=== PATIENT | female | born 1965 | race Caucasian/White ===

== ENCOUNTER 2017-06-12 06:31 | Inpatient (IN) | payer OTHER ==
[2017-05-25 08:39] VITALS: Ht 170.2 cm; Wt 84.6 kg
--- NOTE | 2017-05-25 09:10 | PAT Medication Instructions ---
Service Date May 25, 2017. Current Home Medication List Ibuprofen (Advil), 800 MG PO PRN Medication Instructions For Your Scheduled Surgery - Check with surgeon for instructions: Ibuprofen (Advil), 800 MG PO PRN If you have any questions please call us at [phone] or [phone] or [phone]
[2017-06-12] VITALS (11 sets, daily range): BP systolic 83–111; BP diastolic 47–72; PULSE 51–68; TEMP 36.4–37; O2SAT 93–99
[~2017-06-12] VITALS: Ht 170.2 cm; Wt 84.6 kg
[~2017-06-12 06:31] MED LIST: CEFUROXIME IV 1,500 MG in DEXTROSE 5% 100ML IV SCH; IBUP-1050 PO
--- NOTE | 2017-06-12 07:52 | History & Physical Bridge Note ---
H&P Re-Evaluation Bridge Note: I have examined the patient, reviewed the History & Physical and in the interval since the performance of the History & Physical I have noted the following changes of clinical significance: No changes noted
[2017-06-12] MEDS ORDERED: CONRAY 60% 50 ML VIAL ONE (07:56)
[2017-06-12] MEDS ORDERED: BUPIVACAINE 0.5 % 5 MG/1 ML MPF 30ML VIAL ONE (07:56)
[2017-06-12] MEDS ORDERED: ONDANSETRON INJ 2 MG/ML 2 ML VIAL ONE (07:59)
[2017-06-12] MEDS ORDERED: GLYCOPYRROLATE INJ 0.2 MG/ML VIAL ONE (07:59)
[2017-06-12] MEDS ORDERED: LIDOCAINE HCL 2% 2 ML VIAL (20MG/ML) ONE (07:59)
[2017-06-12] MEDS ORDERED: PHENYLEPHRINE HCL INJ 10 MG/ML VIAL ONE (07:59)
[2017-06-12] MEDS ORDERED: SUCCINYLCHOLINE CHLORIDE 20 MG/ML 10 ML VIAL IV ONE (07:59)
[2017-06-12] MEDS ORDERED: PROPOFOL IV EMULSION 10 MG/ML 20 ML VIAL IV ONE (07:59)
[2017-06-12] MEDS ORDERED: FENTANYL CITRATE INJ 50 MCG/1 ML 2 ML VIAL ONE (07:59)
[2017-06-12] MEDS ORDERED: MIDAZOLAM HCL 1 MG/ML 2ML VIAL ONE (07:59)
[2017-06-12] MEDS ORDERED: DEXAMETHASONE SOD INJ 4 MG/ML VIAL ONE (07:59)
[2017-06-12] MEDS ORDERED: NEOSTIGMINE METHYLSULFATE 5 MG/5 ML SYR ONE (07:59)
[2017-06-12] MEDS ORDERED: EpHEDrine SULFATE INJ 50 MG/ML AMP ONE (07:59)
[2017-06-12] MEDS ORDERED: SCOPOLAMINE 1.5 MG TDSY TD ONE ×2 (08:02→08:15)
[2017-06-12] MEDS ORDERED: EpHEDrine SULFATE INJ 50 MG/ML AMP IV PRN (08:15)
[2017-06-12] MEDS ORDERED: ONDANSETRON INJ 2 MG/ML 2 ML VIAL IV PRN ×2 (08:15→09:30)
[2017-06-12] MEDS ORDERED: ATROPINE SULFATE 0.1 MG/ML 5ML SYR IV PRN (08:15)
[2017-06-12] MEDS ORDERED: ROCURONIUM BROMIDE 10 MG/ML 5 ML VIAL IV ONE (08:44)
[2017-06-12] MEDS ORDERED: EpHEDrine SULFATE 50MG/5ML SYR ONE (08:44)
--- NOTE | 2017-06-12 09:15 | [facility] Operative Report ---
Operative Report Operative Date Jun 12, 2017. Pre-Operative Diagnosis Biliary Colic, Chronic Cholecystitis Post-Operative Diagnosis Biliary Colic, Chronic Cholecystitis Procedure(s) Performed Laparoscopic Cholecystectomy with Cholangiogram Surgeon Dr. Gill [employer] Specialist Surgeon(s) Morgan Duran PA-C Estimated Blood Loss 10 cc Findings severe chronic inflammation and adhesions sludge significant Specimens A: Gallbladder and contents Anesthesia gen Complication(s) None Disposition Recovery Room / PACU I attest to the content of the Intraoperative Record and any orders documented therein. Any exceptions are noted below.
[2017-06-12] MEDS ORDERED: PROMETHAZINE HCL INJ 25 MG in SODIUM CHLORIDE 0.9% 50ML 50 ML IV PRN (09:30)
[2017-06-12] MEDS ORDERED: MoRPHine SULFATE 2 MG/ML CARP IV PRN (09:30)
[2017-06-12] MEDS ORDERED: MoRPHine SULFATE 4 MG/ML 1 ML CARP\\VIAL IV PRN (09:30)
[2017-06-12] MEDS: FENTANYL CITRATE INJ 50 MCG/1 ML 2 ML VIAL IV PRN ×3 (09:36→09:46)
--- NOTE | 2017-06-12 09:36 | OPERATIVE REPORT ---
DATE OF OPERATION: 06/12/2017 NAME OF OPERATION: Laparoscopic cholecystectomy. PREOPERATIVE DIAGNOSIS: Biliary colic. POSTOPERATIVE DIAGNOSIS: Same with chronic cholecystitis and adhesions. STAFF SURGEON: Slim Gill MD. PLASTIC EYE TECHNICIAN: Igor Duran PA-C. ANESTHESIA: General. DESCRIPTION OF THE PROCEDURE: The patient was brought in the operating room and placed on the operating table in supine position. Pneumatic stockings and orogastric tube were placed. Her abdomen was prepped and draped in usual fashion. 0.5% plain Marcaine was used to anesthetize all incisions. Incision was made above the umbilicus, carrying dissection down to the fascia, placing a Veress needle producing pneumoperitoneum. An 11 mm port was placed at this level. Under visualization, three 5 mm ports were placed, 1 cephalad and 2 laterally. Gallbladder was distended. It was very large. It was somewhat tense. It felt like there were stones in the proximal portion of the gallbladder. There were chronic adhesions which were taken down. Dissection was carried out at the sam hepatis, identifying the cystic duct which was very small. It was clipped and transected and the cystic artery identified, clipped and transected and the gallbladder dissected away from the liver bed. There were chronic adhesions consistent with chronic cholecystitis. Gallbladder contained significant sludge. It was placed into an Endobag and then using a 5 mm scope, the gallbladder in Endobag was removed through the umbilical site. I did have to enlarge the fascial defect and the skin to remove the large gallbladder. I also had to decompress the sludge within the bag. At this point, the fascial defect at the umbilicus was closed using interrupted 0 PDS suture. Subcutaneous tissue reapproximated using 0 Vicryl suture, then the skin reapproximated using 5-0 Prolene suture. Dressings applied and patient transferred to recovery room in stable condition. I attest to the content of the Intraoperative Record and any orders documented therein. Any exception s are noted below.
[2017-06-12] MEDS: HYDROmorphone INJ 1 MG/ML SYR IV PRN ×2 (09:56→10:05)
[2017-06-12] MEDS ORDERED: PROMETHAZINE HCL INJ 12.5 MG in SODIUM CHLORIDE 0.9% 50ML 50 ML IV PRN (10:00)
[2017-06-12] MEDS ORDERED: IV FLUIDS COMPLETED PRN (10:15)
--- NOTE | 2017-06-12 10:15 | Anesthesiology Progress Note ---
Anesthesia Post Op Note Date & Time Jun 12, 2017 at 10:15 Vital Signs Pain Intensity: 3 Vital Signs Past 12 Hours Date Time Temp Pulse Resp B/P (MAP) Pulse Ox O2 Delivery O2 Flow Rate FiO2 06/12/17 10:06 36.5 107/61 06/12/17 10:05 66 18 06/12/17 10:05 64 18 98 06/12/17 10:01 107/63 06/12/17 10:00 64 17 06/12/17 10:00 64 17 100 06/12/17 09:56 112/65 06/12/17 09:55 62 12 06/12/17 09:55 61 12 98 06/12/17 09:51 118/58 06/12/17 09:50 63 15 06/12/17 09:50 63 15 99 06/12/17 09:45 60 13 115/62 98 06/12/17 09:45 60 13 06/12/17 09:42 113/62 06/12/17 09:40 69 15 06/12/17 09:40 71 15 98 06/12/17 09:35 69 15 06/12/17 09:35 70 15 118/65 96 06/12/17 09:31 117/56 06/12/17 09:25 36.5 78 14 126/66 99 Oxymask 10 06/12/17 07:06 36.4 65 18 109/61 (77) 97 Room Air Notes Mental Status: alert / awake / arousable, participated in evaluation Pt Amnestic to Procedure: Yes Nausea / Vomiting: adequately controlled Pain: adequately controlled Airway Patency, RR, SpO2: stable & adequate BP & HR: stable & adequate Hydration State: stable & adequate Anesthetic Complications: no major complications apparent
[2017-06-12] MEDS ORDERED: KETOROLAC TROMETHAMINE 30 MG/ML VIAL IV. ONE (11:24)
[2017-06-12] MEDS ORDERED: LACTATED RINGER'S 1000ML 1,000 ML IV SCH (12:03)
[2017-06-12] MEDS: CEFUROXIME IV 1,500 MG in DEXTROSE 5% 100ML 100 ML IV SCH ×2 (13:41→22:12)
[2017-06-12] MEDS ORDERED: GI COCKTAIL PO ONE (13:45)
[2017-06-12] MEDS ORDERED: ALUMINUM/MAGNESIUM SUSP 18 ML, LIDOCAINE HCL 2% VISCOUS SOLN 6 ML, BARCODE IDENTIFIER 1 EA PO SCH ×2 (13:45)
--- NOTE | 2017-06-12 13:59 | DIAGNOSTIC IMAGING REPORT ---
SINGLE VIEW CHEST CLINICAL HISTORY: Dyspnea. FINDINGS: An AP, portable, upright chest radiograph is obtained. No prior studies are available for comparison at the time of dictation. The cardiomediastinal silhouette is unremarkable. Atelectasis is noted at the left lung base. The lungs and pleural spaces are otherwise clear. No pneumothorax is seen. The skeletal structures appear osteopenic. The bony thorax is grossly intact. IMPRESSION: No active disease in the chest. Electronically signed by: Geremias Oro M.D. 06/12/2017 1:58 PM Dictated Date/Time: 06/12/2017 1:57 PM
[2017-06-12 14:07] LABS: HEMATOCRIT 38.6 % (37-47); HEMOGLOBIN 13.1 g/dL (12.0-16.0); MEAN CELL VOLUME 85.8 fL (80-100); MEAN CORPUSCULAR HEMOGLOBIN 29.1 pg (25-34); MEAN CORPUSCULAR HGB CONC 33.9 g/dl (32-36); MEAN PLATELET VOLUME 9.6 fL (7.4-10.4); PLATELET COUNT 245 K/uL (130-400); RED CELL DISTRIBUTION WIDTH CV 12.4 % (11.5-14.5); RED CELL DISTRIBUTION WIDTH SD 38.7 fL (36.4-46.3); WHITE BLOOD COUNT 11.41 K/uL (4.8-10.8)
[2017-06-12 14:42] LABS: CALCIUM 8.8 mg/dl (8.5-10.1); CREATININE 0.88 mg/dl (0.60-1.20); POTASSIUM 3.1 mmol/L (3.5-5.1)
[2017-06-12] MEDS ORDERED: POTASSIUM CHLORIDE 20 MEQ TABCR PO STA (14:45)
[2017-06-12] MEDS: POTASSIUM CHLORIDE INJ 20 MEQ in LACTATED RINGER'S 1000ML 1,000 ML IV SCH (16:07)
[2017-06-12] MEDS ORDERED: COUGH DROP (SUGAR FREE) LOZ 24 LOZ/1 BOX ONE (17:25)
[2017-06-12] MEDS: HYDROCODONE/ACETAMOPHEN 5/325MG TAB PO PRN (17:26)
[2017-06-12] MEDS ORDERED: NITROGLYCERIN 0.4 MG SL PER TAB CHARGE SL STA (20:47)
[2017-06-12] MEDS ORDERED: NITROGLYCERIN 0.4 MG SL PER TAB CHARGE ONE (20:52)
--- NOTE | 2017-06-12 21:57 | Medical Consult ---
Consultation Date of Consultation: Jun 12, 2017. Attending Physician: Slim Gill M.D. History of Present Illness Very pleasant 52yo female with no significant PMH except mild GERD (diet- controlled) and hiatal hernia who underwent uncomplicated lap luis this AM by Dr. Slim Gill. Shortly after arriving on the surgical floor post-op she noted nausea and substernal dull chest discomfort with a mild pleuritic component to it. No radiation of the pain to the neck, jaw, or arms. No vomiting. Minimal shortness of breath. She mentioned during my assessment that she could "hear air moving around" in her chest. She had received toradol prior to my arrival with minimal relief of symptoms. She mentions that she exercises regularly with NO limiting dyspnea or chest pain. Pre-op EKG was essentially normal with nonspecific ST segment changes in lead III only and q waves in the inferior leads. Past Medical/Surgical History PMH: 1. GERD 2. hiatal hernia PSH: 1. lap luis 2. left wrist surgery 3. 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[employer]) Allergies Coded Allergies: Acetaminophen (Verified Allergy, Unknown, PRURITIS, 06/12/17) Oxycodone (Verified Allergy, Unknown, PRURITIS, 06/12/17) Home Medications Reported Home Medications Medications Dose Route/Sig Max Daily Dose Days Date Category Advil (Ibuprofen) 200 Mg Tab 800 Mg PO PRN 05/25/17 Reported Current Inpatient Medications Current Inpatient Medications Medications (Trade) Dose Ordered Sig/Bin Route Start Time Stop Time Status Last Admin Dose Admin Miscellaneous (Remove Transderm-Scop Patch) 1 ea Q72H N/A 06/15/17 06:00 06/15/17 06:01 Lactated Ringer's 1,000 ml @ 75 mls/hr [id number] IV 06/12/17 12:03 07/12/17 09:19 Cefuroxime Sodium 1500 mg/Dextrose 115 ml @ 200 mls/hr Q8 IV 06/12/17 14:00 06/12/17 23:00 Acetaminophen/ Hydrocodone Bitart ([place] 5/325 Tab) 1 tab Q4 PRN PO 06/12/17 09:30 06/26/17 09:29 Acetaminophen/ Hydrocodone Bitart ([place] 5/325 Tab) 2 tab Q4 PRN PO 06/12/17 09:30 06/26/17 09:29 Morphine Sulfate (MoRPHine SULFATE INJ) 2 mg Q4H PRN IV 06/12/17 09:30 06/26/17 09:29 Morphine Sulfate (MoRPHine SULFATE INJ) 4 mg Q4H PRN IV 06/12/17 09:30 06/26/17 09:29 Promethazine HCl 25 mg/Sodium Chloride 51 ml @ 204 mls/hr Q6H PRN IV 06/12/17 09:30 07/12/17 09:29 Ondansetron HCl (Zofran Inj) 4 mg Q6H PRN IV 06/12/17 09:30 07/12/17 09:29 Promethazine HCl 12.5 mg/Sodium Chloride 50.5 ml @ 204 mls/hr Q6H PRN IV 06/12/17 10:00 07/12/17 09:59 Miscellaneous (Iv Fluids Completed) 1 ea PRN PRN N/A 06/12/17 10:15 06/12/18 10:14 Miscellaneous Medication (Gi Cocktail) 24 ml ONE ONCE PO 06/12/17 13:45 06/12/17 13:46 UNV Review of Systems Constitutional: No fever, No chills, No weight loss ENT: No nasal symptoms, No sore throat Respiratory: + shortness of breath, No cough, No sputum, No wheezing, No hemoptysis Cardiovascular: + chest pain, No orthopnea, No PND Abdomen: + pain (due to surgery), + nausea, No vomiting, No diarrhea, No GI bleeding Musculoskeletal: No joint pain, No muscle pain Genitourinary - Female: No dysuria Neurologic: No numbness/tingling Endocrine: No fatigue Hematologic / Lymphatic: No abnormal bleeding/bruising Integumentary: No rash Physical Exam Date Time Temp Pulse Resp B/P (MAP) Pulse Ox O2 Delivery O2 Flow Rate FiO2 06/12/17 13:00 64 16 109/72 (84) 99 Nasal Cannula 2.0 06/12/17 12:00 57 18 99/62 (74) 97 06/12/18 11:30 60 19 98/61 (73) 98 Nasal Cannula 1.0 18 11:00 Nasal Cannula 18 11:00 98 Nasal Cannula 1.0 18 11:00 36.5 61 19 98/59 (72) 98 Nasal Cannula 1.0 06/12/18 10:40 109/61 18 10:37 54 14 18 10:37 54 14 99 18 10:35 115/63 18 10:32 60 18 10:32 60 16 99 06/12/18 10:31 107/58 06/12/17 10:27 56 16 98 06/12/17 10:27 57 16 18 10:26 105/57 18 10:22 66 26 99 18 10:22 64 26 18 10:21 112/57 06/12/17 10:17 60 15 98 06/12/17 10:17 58 15 18 10:16 107/59 06/12/17 10:12 55 16 06/12/17 10:12 54 16 98 18 10:11 112/58 06/12/17 10:07 75 18 06/12/17 10:07 74 18 98 18 10:06 36.5 107/61 18 10:05 66 18 18 10:05 64 18 98 18 10:01 107/63 18 10:00 64 17 18 10:00 64 17 100 18 09:56 112/65 18 09:55 62 12 18 09:55 61 12 98 18 09:51 118/58 18 09:50 63 15 18 09:50 63 15 99 18 09:45 60 13 115/62 98 18 09:45 60 13 15/18 09:42 113/62 18 09:40 69 15 18 09:40 71 15 98 18 09:35 69 15 06/12/17 09:35 70 15 118/65 96 06/12/17 09:31 117/56 06/12/17 09:25 36.5 78 14 126/66 99 Oxymask 10 06/12/17 07:06 36.4 65 18 109/61 (77) 97 Room Air General Appearance: WD/WN, no apparent distress Head: normocephalic, atraumatic Eyes: PERRL ENT: pharynx normal Neck: supple, no adenopathy, thyroid normal, no JVD Respiratory/Chest: chest non-tender, lungs clear, no respiratory distress, no accessory muscle use, + rales (faint, minimal, left base only) Cardiovascular: regular rate, rhythm, no gallop, no murmur, normal peripheral pulses, + pertinent finding (no reproducible chest wall pain with palpation) Abdomen/GI: normal bowel sounds, soft, no organomegaly, + tenderness (over incisions), + distended (minimal ) Back: normal inspection Extremities/Musculoskelatal: no pedal edema Neurologic/Psych: no motor/sensory deficits, alert, normal mood/affect, oriented x 3 Skin: no rash, + pertinent finding (dressings intact over abdominal wall) Lymphatic: no adenopathy (no cervical LAD) Laboratory Results Last 24 Hours Test 06/12/17 07:25 06/12/17 13:31 Assessment & Plan 52yo female with h/o mild GERD and hiatal hernia, s/p lap luis today for chronic cholecystitis, now with substernal chest discomfort associated with nausea post-operatively. No risk factors for CAD and no personal/family history of PE. She had minimal relief of symptoms with toradol IV. Differential - cardiac/ACS vs PE vs GI; favor latter but needs work-up for cardiopulmonary causes. Just before my assessment she had a repeat EKG - see below. Plan - * serial troponins * check cbc, bmp * EKG reviewed - NS ST changes III, AV - lead III changes are chronic based on preop EKG * cxr now * trial of GI cocktail
[2017-06-12] MEDS ORDERED: SODIUM CHLORIDE 0.9% 500ML 500 ML IV ONE (22:00)
[2017-06-13 04:00] VITALS: BP 91/54; PULSE 59; TEMP 37.2; O2SAT 93
[2017-06-13] MEDS: HYDROCODONE/ACETAMOPHEN 5/325MG TAB PO PRN ×5 (04:12→22:02)
[2017-06-13] MEDS ORDERED: CALCIUM CARBONATE 500 MG CHEWABLE PO ONE (04:30)
[2017-06-13] MEDS ORDERED: CALCIUM CARBONATE 500 MG CHEWABLE PO PRN (04:30)
[2017-06-13] MEDS: POTASSIUM CHLORIDE INJ 20 MEQ in LACTATED RINGER'S 1000ML 1,000 ML IV SCH (04:50)
[2017-06-13 05:05] LABS: HEMATOCRIT 36.2 % (37-47); MEAN CELL VOLUME 86.4 fL (80-100); MEAN CORPUSCULAR HEMOGLOBIN 28.6 pg (25-34); MEAN CORPUSCULAR HGB CONC 33.1 g/dl (32-36); MEAN PLATELET VOLUME 9.7 fL (7.4-10.4); PLATELET COUNT 253 K/uL (130-400); RED CELL DISTRIBUTION WIDTH CV 12.4 % (11.5-14.5); RED CELL DISTRIBUTION WIDTH SD 39.6 fL (36.4-46.3); WHITE BLOOD COUNT 10.05 K/uL (4.8-10.8)
[2017-06-13 05:48] LABS: ALBUMIN 2.9 gm/dl (3.4-5.0); ALKALINE PHOSPHATASE 92 U/L (45-117); ALT/SGPT 60 U/L (12-78); AST/SGOT 38 U/L (15-37); BLOOD UREA NITROGEN 14 mg/dl (7-18); CALCIUM 8.5 mg/dl (8.5-10.1); CARBON DIOXIDE 28 mmol/L (21-32); CREATININE 1.03 mg/dl (0.60-1.20); GLUCOSE 96 mg/dl (70-99); SODIUM 141 mmol/L (136-145); TOTAL PROTEIN 6.1 gm/dl (6.4-8.2)
[2017-06-13] MEDS ORDERED: HYDR-5688 PO (05:51)
--- NOTE | 2017-06-13 05:53 | Discharge Instructions ---
Discharge Instructions Date of Service Jun 13, 2017. Admission Reason for Admission: Biliary Colic, Chronic Cholecystitis Discharge Discharge Diagnosis / Problem: chronic cholecystitis Discharge Goals Goal(s): Decrease discomfort, Improve function, Improve disease control Activity Recommendations Activity Limitations: as noted below Lifting Limitations: no more than 25 pounds (for 3 weeks) Exercise/Sports Limitations: until after follow-up appointment May Resume Sexual Activity: when tolerated Shower/Bathe: no limitations (may shower, no bath until sutures removed) Driving or Machine Use: resume 3 days after discharge . Instructions / Follow-Up Instructions / Follow-Up SPECIAL CARE INSTRUCTIONS: * Cover incisions and change daily for comfort/drainage. * May use ibuprofen for pain as tolerated. * Expect some swelling and bruising. Call your doctor if: * Temperature above 101 degrees * Pain not relieved by pain medicine ordered * There is increased drainage or redness from any incision * You have any unanswered questions or concerns [phone]. FOLLOW UP VISIT: If not already scheduled, please call the office for a follow-up visit. for next week- suture removal OFFICE PHONE NUMBER: Dr. Gill Office Current Hospital Diet Patient's current hospital diet: Regular Diet Discharge Diet Recommended Diet: Regular Diet Procedures Procedures Performed: Laparoscopic Cholecystectomy with Cholangiogram Pending Studies Studies pending at discharge: no Medical Emergencies . Who to Call and When: Medical Emergencies: If at any time you feel your situation is an emergency, please call 911 immediately. . Non-Emergent Contact Non-Emergency issues call your: Primary Care Provider, Surgeon . "Provider Documentation" section prepared by Slim Gill. . VTE Core Measure Inpt VTE Proph given/why not?: SCD's
--- NOTE | 2017-06-13 06:30 | Surgery Progress Note ---
Surgery Progress Note Date of Service Jun 13, 2017. Subjective afeb, vitals ok- looks very good Dr Logan's eval noted and appreciated- cardiac w/u neg Objective Vital Signs: Date Time Temp Pulse Resp B/P (MAP) Pulse Ox O2 Delivery O2 Flow Rate FiO2 06/13/17 04:00 37.2 59 18 91/54 (66) 93 Room Air 06/12/17 23:30 Room Air 06/12/17 22:53 37.0 51 16 96/61 (73) 94 Room Air 06/12/17 21:47 83/47 (59) 06/12/17 20:59 95/51 (66) 06/12/17 15:25 Room Air 06/12/17 15:19 36.9 61 18 97/58 (71) 93 Room Air 06/12/17 14:31 97 Room Air 06/12/17 13:58 36.5 68 19 111/69 (83) 96 Nasal Cannula 2.0 06/12/17 13:00 64 16 109/72 (84) 99 Nasal Cannula 2.0 06/12/17 12:00 57 18 99/62 (74) 97 06/12/17 11:30 60 19 98/61 (73) 98 Nasal Cannula 1.0 06/12/17 11:00 Nasal Cannula 06/12/17 11:00 98 Nasal Cannula 1.0 06/12/17 11:00 36.5 61 19 98/59 (72) 98 Nasal Cannula 1.0 06/12/17 10:40 109/61 06/12/17 10:37 54 14 06/12/17 10:37 54 14 99 06/12/17 10:35 115/63 06/12/17 10:32 60 06/12/17 10:32 60 16 99 06/12/17 10:31 107/58 06/12/17 10:27 56 16 98 06/12/17 10:27 57 16 06/12/17 10:26 105/57 06/12/17 10:22 66 26 99 06/12/17 10:22 64 26 06/12/17 10:21 112/57 06/12/17 10:17 60 15 98 06/12/17 10:17 58 15 06/12/17 10:16 107/59 06/12/17 10:12 55 16 06/12/17 10:12 54 16 98 06/12/17 10:11 112/58 06/12/17 10:07 75 18 06/12/17 10:07 74 18 98 06/12/17 10:06 36.5 107/61 06/12/17 10:05 66 18 06/12/17 10:05 64 18 98 06/12/17 10:01 107/63 06/12/17 10:00 64 17 06/12/17 10:00 64 17 100 06/12/17 09:56 112/65 06/12/17 09:55 62 12 06/12/17 09:55 61 12 98 06/12/17 09:51 118/58 06/12/17 09:50 63 15 06/12/17 09:50 63 15 99 06/12/17 09:45 60 13 115/62 98 06/12/17 09:45 60 13 06/12/17 09:42 113/62 06/12/17 09:40 69 15 06/12/17 09:40 71 15 98 06/12/17 09:35 69 15 06/12/17 09:35 70 15 118/65 96 06/12/17 09:31 117/56 06/12/17 09:25 36.5 78 14 126/66 99 Oxymask 10 06/12/17 07:06 36.4 65 18 109/61 (77) 97 Room Air General Appearance: no apparent distress Respiratory/Chest: no respiratory distress Abdomen: soft Incision(s): dry, intact Laboratory Results: Results Past 24 Hours Test 06/12/17 07:25 06/12/17 13:43 06/12/17 19:19 06/13/17 01:18 Range/Units White Blood Count 11.41 4.8-10.8 K/uL Red Blood Count 4.50 4.2-5.4 M/uL Hemoglobin 13.1 12.0-16.0 g/dL Hematocrit 38.6 37-47 % Mean Corpuscular Volume 85.8 80-100 fL Mean Corpuscular Hemoglobin 29.1 25-34 pg Mean Corpuscular Hemoglobin Concent 33.9 32-36 g/dl RDW Standard Deviation 38.7 36.4-46.3 fL RDW Coefficient of Variation 12.4 11.5-14.5 % Platelet Count 245 130-400 K/uL Mean Platelet Volume 9.6 7.4-10.4 fL Sodium Level 139 136-145 mmol/L Potassium Level 3.1 3.5-5.1 mmol/L Chloride Level 107 98-107 mmol/L Carbon Dioxide Level 27 21-32 mmol/L Anion Gap 5.0 3-11 mmol/L Blood Urea Nitrogen 18 7-18 mg/dl Creatinine 0.88 0.60-1.20 mg/dl Est Creatinine Clear Calc Drug Dose 81.7 ml/min Estimated GFR () 86.3 Estimated GFR (Non- 74.5 BUN/Creatinine Ratio 20.0 10-20 Random Glucose 139 70-99 mg/dl Calcium Level 8.8 8.5-10.1 mg/dl Troponin I 0.022 0.019 0.019 0-0.045 ng/ml Test 06/13/17 04:41 Range/Units White Blood Count 10.05 4.8-10.8 K/uL Red Blood Count 4.19 4.2-5.4 M/uL Hemoglobin 12.0 12.0-16.0 g/dL Hematocrit 36.2 37-47 % Mean Corpuscular Volume 86.4 80-100 fL Mean Corpuscular Hemoglobin 28.6 25-34 pg Mean Corpuscular Hemoglobin Concent 33.1 32-36 g/dl RDW Standard Deviation 39.6 36.4-46.3 fL RDW Coefficient of Variation 12.4 11.5-14.5 % Platelet Count 253 130-400 K/uL Mean Platelet Volume 9.7 7.4-10.4 fL Sodium Level 141 136-145 mmol/L Potassium Level 4.0 3.5-5.1 mmol/L Chloride Level 108 98-107 mmol/L Carbon Dioxide Level 28 21-32 mmol/L Anion Gap 5.0 3-11 mmol/L Blood Urea Nitrogen 14 7-18 mg/dl Creatinine 1.03 0.60-1.20 mg/dl Est Creatinine Clear Calc Drug Dose 69.8 ml/min Estimated GFR () 71.4 Estimated GFR (Non- 61.6 BUN/Creatinine Ratio 13.7 10-20 Random Glucose 96 70-99 mg/dl Calcium Level 8.5 8.5-10.1 mg/dl Magnesium Level 2.0 1.8-2.4 mg/dl Total Bilirubin 0.4 0.2-1 mg/dl Direct Bilirubin < 0.1 0-0.2 mg/dl Aspartate Amino Transf (AST/SGOT) 38 15-37 U/L Alanine Aminotransferase (ALT/SGPT) 60 12-78 U/L Alkaline Phosphatase 92 45-117 U/L Total Protein 6.1 6.4-8.2 gm/dl Albumin 2.9 3.4-5.0 gm/dl Globulin 3.2 2.5-4.0 gm/dl Albumin/Globulin Ratio 0.9 0.9-2 Assessment & Plan 06/13/17- s/p lap luis- still with mild chest pressure- breathing comfortable. will check CT chest- r/o PE possible d/c later today if ok with med team
[2017-06-13] MEDS ORDERED: OPTIRAY 320 IV PRN (06:45)
[2017-06-13 07:25] VITALS: BP 96/56; PULSE 45; TEMP 36.8; O2SAT 93
--- NOTE | 2017-06-13 07:38 | Anesthesiology Progress Note ---
Anesthesia Post Op Note Date & Time Jun 13, 2017 at 07:37 Vital Signs Pain Intensity: 5.0 Vital Signs Past 12 Hours Date Time Temp Pulse Resp B/P (MAP) Pulse Ox O2 Delivery O2 Flow Rate FiO2 06/13/17 07:25 36.8 45 18 96/56 (69) 93 Room Air 06/13/17 07:15 Room Air 06/13/17 04:00 37.2 59 18 91/54 (66) 93 Room Air 06/12/17 23:30 Room Air 06/12/17 22:53 37.0 51 16 96/61 (73) 94 Room Air 06/12/17 21:47 83/47 (59) 06/12/17 20:59 95/51 (66) Notes Mental Status: alert / awake / arousable, participated in evaluation Pt Amnestic to Procedure: Yes Nausea / Vomiting: adequately controlled Pain: adequately controlled Airway Patency, RR, SpO2: stable & adequate BP & HR: stable & adequate Hydration State: stable & adequate Anesthetic Complications: no major complications apparent
--- NOTE | 2017-06-13 07:50 | DIAGNOSTIC IMAGING REPORT ---
CT ANGIOGRAPHY OF THE CHEST, PULMONARY EMBOLUS PROTOCOL CLINICAL HISTORY: Persistent postoperative chest pressure status post left laparoscopic cholecystectomy. COMPARISON STUDY: Chest radiograph June 12, 2017. TECHNIQUE: Following IV administration of 92 mL of [id number]-[id number], helical axial images of the chest were obtained utilizing the pulmonary embolus protocol. Maximal intensity projections and sagittal and coronal reformats were viewed on an independent 3D workstation. IV contrast was administered without complication. A dose lowering technique was utilized adhering to the principles of ALARA. CT DOSE: 229.35 mGy.cm FINDINGS: No pulmonary emboli are identified. The size of the heart is normal. There is no pericardial effusion. No enlarged thoracic lymph nodes are noted. Note is made of a small to moderate pneumomediastinum within the mid to upper mediastinum which extends into the retropharyngeal soft tissues. There is a defect within the left posterior aspect of the trachea, within the membranous portion, at the T2 level. The defect measures approximately 3 x 1.3 cm. There is associated outpouching of the membranous portion of the trachea. This represents a tracheal tear. There is mild mediastinal infiltration. Bilateral lower lung opacities represent atelectasis. There is no consolidation to suggest pneumonia. There is no pneumothorax. There is minimal infiltration within visualized portions of the cholecystectomy bed which is within normal limits in the early postoperative period minimal pneumoperitoneum is expected. IMPRESSION: 1. Findings consistent with a tracheal tear/rupture involving the left posterior aspect of the membranous portion of the trachea at the T2 level. Tear measures approximately 3 x 1.3 cm in size with small to moderate pneumomediastinum and mild mediastinal infiltration. Findings discussed with Dr. Gill at time of dictation. 2. No pulmonary emboli identified. 3. Minimal pneumoperitoneum and trace infiltration within visualized portions of the cholecystectomy bed which are expected in the early postoperative setting. 4. Bilateral lower lung opacities which represent atelectasis. Electronically signed by: Rsahawn Mullen M.D. 06/13/2017 7:49 AM Dictated Date/Time: 06/13/2017 7:21 AM
[2017-06-13] MEDS ORDERED: PIPERACILL/TAZOBAC CONSULT ACTIVE PRN (08:00)
[2017-06-13] MEDS ORDERED: NURSING VERBAL MED ORDER ONE ×2 (08:00→09:45)
[2017-06-13] MEDS ORDERED: PIPERACILL/TAZOBAC IV 3.375 GM in DEXTROSE 5% 100ML IV ONE ×2 (08:15→09:15)
--- NOTE | 2017-06-13 08:15 | Medical Consult ---
Consultation Note Date of Service Jun 13, 2017. Consultation Note Consult Dictated #[id number]
[2017-06-13 08:41] LABS: INR 1.1 (0.9-1.1)
--- NOTE | 2017-06-13 08:45 | CONSULTATION REPORT ---
DATE OF CONSULTATION: 06/13/2017 REASON FOR CONSULTATION: Pneumomediastinum. HISTORY OF PRESENT ILLNESS: This is a 52-year-old female who underwent a laparoscopic cholecystectomy yesterday by Dr. Gill. This was performed due to biliary colic and chronic cholecystitis. The patient underwent successful laparoscopic procedure; however, shortly after arriving to the medical unit following her surgery, the patient developed some persistent substernal chest pressure with some radiation to her left scapula. She says she was not really short of breath. She denies any fever, shakes, or chills. When questioned her on other symptomatology, the patient says she has not noted any headaches, visual changes, tinnitus, vertigo, epistaxis or sore throat. She denies any neck pain. She has substernal chest pain that did radiate to her left scapula as noted above. She did not exhibit any diaphoresis. She denies any history of heart issues. She says she is not short of breath. She did not note any palliative or provocative factors to her above noted symptoms. She does note some tenderness at her surgical incisions and denies any nausea or vomiting. No myalgias are noted. She has no history of DVT or PE. She denies anxiety or depression. Following the patient's surgery, the hospitalists were consulted due to the above noted problem and appropriate initiation was undertaken. The patient did undergo a chest x-ray that showed no active disease in the chest. The patient then subsequently underwent a CT angiogram of the chest that showed no evidence of pulmonary emboli; however, the patient was noted to have a tracheal tear in the membranous portion of the trachea, measuring approximately 3 x 1.3 cm in size, located at T2 level. This resulted in small to moderate pneumomediastinum. For this reason, we are consulted. It is noteworthy to mention that the patient did have labs today, where CBC revealed hemoglobin, white blood cell count and platelet count were all within normal range. Chemistry profile showed sodium, potassium, BUN and creatinine were normal. The patient has had a troponin checked on 3 occasions, which were all nonelevated. In addition, the patient has undergone an EKG since her above noted symptoms that showed sinus bradycardia with no evidence of acute ischemia. I visited with the patient at bedside. At the present time, she is resting comfortably in bed in no overt distress. PAST MEDICAL HISTORY: Includes chronic cholecystitis. PAST SURGICAL HISTORY: The patient has undergone 2 vaginal deliveries. She has undergone a tendon repair of her left arm. She has also had tonsils and adenoids as a child. ALLERGIES: INCLUDE OXYCODONE. OUTPATIENT MEDICATION REGIMEN: Includes the followin. [place] as needed for pain. 2. Ibuprofen as needed. SOCIAL HISTORY: She is a lifetime nonsmoker. She did serve in the [employer]. 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 FAMILY HISTORY: Positive for colon cancer. However, both of her parents suffered from this and they both alive. REVIEW OF SYSTEMS: As noted above. PHYSICAL EXAMINATION: VITAL SIGNS: The patient is afebrile with temperature 36.8, pulse 45 and regular, respirations are 18 and unlabored, blood pressure 96/56, and pulse ox 93% on room air. GENERAL: She is alert. She is oriented x3. HEENT: Head is atraumatic and normocephalic. Eyes: Pupils equal, round and reactive to light and accommodation. Extraocular motions are intact. Ears: Auditory acuity is grossly intact. Nose: Nasal patency was intact. Sinuses are nontender. NECK: Supple. There is no crepitus. There is subQ air noted in her neck tissue in the anterior and posterior regions. CARDIOVASCULAR: Regular rate and rhythm. LUNGS: The patient's lungs are remarkably clear to auscultation without rales, rhonchi, wheezing or use of accessory muscles. Her chest wall was examined. There is no crepitus noted upon palpation of her chest wall. ABDOMEN: Soft and nondistended. EXTREMITIES: Revealed no cyanosis, clubbing or edema. NEUROLOGIC: Revealed cranial nerves II through XII are grossly intact. No focal deficits are noted. DIAGNOSTIC DATA: As noted above. IMPRESSION: A 52-year-old female with pneumomediastinum. PLAN: The patient is in no distress at this time. We will repeat a CXR and CBC in the morning. At this time no surgical intervention will be performed, and a conservative approach will be employed. CHARITYD
--- NOTE | 2017-06-13 09:30 | SURGERY PROGRESS NOTE ---
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 This is a routine case; however, the patient complained of midsternal chest pain, underwent a CT scan and has a tear in her membranous trachea. She has a small amount of mediastinal air. Her white count is not elevated. She has no fevers. She really has no subcutaneous emphysema. She looks fine. We had a long discussion at the bedside. 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 The most conservative would be to observe the patient. She should be on broad spectrum antibiotics, especially covering anaerobes. She has been started on Zosyn by Dr. Kosta Gill. In addition, I would simply watch her. She does not need to be n.p.o. Ambulating in the hallway. We are going to check an x-ray tomorrow with another white count. It is possible we would have to offer her something; however, at this point, she looks stable and I believe conservative management will suffice. For specifics of her history and physical, please see the full consult dictated by Mr. Ángel Medina.
--- NOTE | 2017-06-13 09:40 | Anesthesiology Progress Note ---
Anesthesia Post Op Note Date & Time Jun 13, 2017 at 09:22 Vital Signs Pain Intensity: 5.0 Vital Signs Past 12 Hours Date Time Temp Pulse Resp B/P (MAP) Pulse Ox O2 Delivery O2 Flow Rate FiO2 06/13/17 07:25 36.8 45 18 96/56 (69) 93 Room Air 06/13/17 07:15 Room Air 06/13/17 04:00 37.2 59 18 91/54 (66) 93 Room Air 06/12/17 23:30 Room Air 06/12/17 22:53 37.0 51 16 96/61 (73) 94 Room Air 06/12/17 21:47 83/47 (59) Notes Mental Status: alert / awake / arousable Anesthetic Complications: C/O midsternal chest pressure. CT chest shows tracheal tear at T2 level. Dr. Cruz consulted and evaluated patient. Will continue to follow and monitor. Patient in no apparent distress. States she is up walking hallways without difficulty no SOB. Updated Dr. Malka Bailey attending [facility] for case. Will follow up with patient today as well.
[2017-06-13] MEDS: PIPERACILL/TAZOBAC IV 3.375 GM in DEXTROSE 5% 100ML 100 ML IV SCH ×2 (13:52→22:03)
[2017-06-13] MEDS: HEPARIN SOD 5000 UNIT/0.5 ML CARP SQ SCH ×2 (13:56→22:02)
[2017-06-13] MEDS ORDERED: PIPERACILL/TAZOBAC IV 3.375 GM in DEXTROSE 5% 100ML IV SCH (14:00)
--- NOTE | 2017-06-13 14:16 | Anesthesiology Progress Note ---
Anesthesia Progress Note Date of Service Jun 13, 2017. Progress Notes The patient is a 52 y/o female with a history of childhood asthma, GERD, hiatal hernia and skin cancer who is POD 1 s/p laparoscopic cholecystectomy with Dr Gill. The patient was induced and intubated without difficulty by Dane the FORENSIC PHOTOGRAPHER. Intubation was atraumatic and the cuff was inflated normally. An OG tube was placed by Dane after I had exited the room and the stomach was suctioned. The patient did well during the procedure with no issues and was extubated at the end of the case. In recovery, the patient did well with no complaints other than a sore throat and she was transferred to the floor. Shortly after being transferred to the floor she began to complain of chest discomfort so a cardiac workup was done and found to negative. A chest CT was then done to evaluate for PE and showed a tracheal laceration and small to moderate pneumomediastinum. The patient was started on IV Zosyn and CT surgery was consulted and recommended conservative management at this time. The patient is currently afebrile and has a normal WBC count. She states that she feels well other than having a sore throat and the persistent chest discomfort. She has been ambulating without difficulty and SpO2 is 93 on RA. I spoke to the patient about the tracheal tear. I explained that everything intraoperatively appeared to be routine and therefore it was not clear to me how the injury had occurred. I stated that conservative management at this time per Dr. Cruz's recommendation seemed appropriate and that I would continue to follow up with her.
--- NOTE | 2017-06-13 15:02 | Progress Note ---
Subjective Date of Service: Jun 13, 2017. Subjective Pt evaluation today including: conversation w/ patient, physical exam, chart review, lab review, review of studies, conversation w/ data governance consultant, review of inpatient medication list Voiding: no voiding problems Doing okay, still field mid chest tight, denied palpitation or dizziness, deny hemoptysis or cough Review of Systems Constitutional: No fever, No chills, No sweats, No weight loss, No weakness, No fatigue, No problem reported Eyes: No worsening of vision, No eye pain, No redness, No discharge, No diplopia ENT: No hearing loss, No unusual epistaxis, No nasal symptoms, No sore throat, No tinnitus, No dental problems, No trouble swallowing Respiratory: No cough, No sputum, No wheezing, No shortness of breath, No dyspnea on exertion, No dyspnea at rest, No hemoptysis Cardiac: No chest pain, No orthopnea, No PND, No edema, No claudication, No palpitations Abdomen: No pain, No nausea, No vomiting, No diarrhea, No constipation Musculoskeletal: No joint pain, No muscle pain, No swelling, No calf pain Female : No dysuria, No urinary frequency, No hematuria, No incontinence, No abnormal vaginal bleeding, No vaginal discharge Neurologic: No memory loss, No paralysis, No weakness, No numbness/tingling, No vertigo, No balance problems Psychiatric: No depression symptoms, No anhedonism, No anxiety, No insomnia, No substance abuse Heme: No abnormal bleeding/bruising, No clotting problems, No swollen lymph nodes, No night sweats Endo: No fatigue, No excessive thirst, No excessive urination Skin: No rash, No itch, No new/changing skin lesions, No color change, No bleeding Objective Vital Signs Date Time Temp Pulse Resp B/P (MAP) Pulse Ox O2 Delivery O2 Flow Rate FiO2 06/13/17 07:25 36.8 45 18 96/56 (69) 93 Room Air 06/13/17 07:15 Room Air 06/13/17 04:00 37.2 59 18 91/54 (66) 93 Room Air 06/12/17 23:30 Room Air 06/12/17 22:53 37.0 51 16 96/61 (73) 94 Room Air 06/12/17 21:47 83/47 (59) 06/12/17 20:59 95/51 (66) 06/12/17 15:25 Room Air 06/12/17 15:19 36.9 61 18 97/58 (71) 93 Room Air Physical Exam General Appearance: WD/WN, no apparent distress, + pertinent finding (pleasant and conversational) Eyes: normal inspection, PERRL, EOMI, sclerae normal ENT: normal ENT inspection, hearing grossly normal, pharynx normal Neck: supple, no adenopathy, thyroid normal, no JVD, no carotid bruits, trachea midline Respiratory/Chest: chest non-tender, lungs clear, normal breath sounds, no respiratory distress, no accessory muscle use, + decreased breath sounds Cardiovascular: regular rate, rhythm, no edema, no gallop, no JVD, no murmur Abdomen: normal bowel sounds, non tender, soft, no organomegaly, no pulsatile mass Extremities: normal range of motion, non-tender, normal inspection, no pedal edema, no calf tenderness, normal capillary refill, pelvis stable Neurologic/Psychiatric: insurance case manager II-XII nml as tested, no motor/sensory deficits, alert, normal mood/affect, oriented x 3 Skin: normal color, warm/dry, no rash Lymphatic: no adenopathy Laboratory Results Last 24 Hours Test 06/12/17 19:19 18 01:18 06/13/17 04:41 Troponin I 0.019 ng/ml 0.019 ng/ml White Blood Count 10.05 K/uL Red Blood Count 4.19 M/uL Hemoglobin 12.0 g/dL Hematocrit 36.2 % Mean Corpuscular Volume 86.4 fL Mean Corpuscular Hemoglobin 28.6 pg Mean Corpuscular Hemoglobin Concent 33.1 g/dl RDW Standard Deviation 39.6 fL RDW Coefficient of Variation 12.4 % Platelet Count 253 K/uL Mean Platelet Volume 9.7 fL Sodium Level 141 mmol/L Potassium Level 4.0 mmol/L Chloride Level 108 mmol/L Carbon Dioxide Level 28 mmol/L Anion Gap 5.0 mmol/L Blood Urea Nitrogen 14 mg/dl Creatinine 1.03 mg/dl Est Creatinine Clear Calc Drug Dose 69.8 ml/min Estimated GFR () 71.4 Estimated GFR (Non- 61.6 BUN/Creatinine Ratio 13.7 Random Glucose 96 mg/dl Calcium Level 8.5 mg/dl Magnesium Level 2.0 mg/dl Total Bilirubin 0.4 mg/dl Direct Bilirubin < 0.1 mg/dl Aspartate Amino Transf (AST/SGOT) 38 U/L Alanine Aminotransferase (ALT/SGPT) 60 U/L Alkaline Phosphatase 92 U/L Total Protein 6.1 gm/dl Albumin 2.9 gm/dl Globulin 3.2 gm/dl Albumin/Globulin Ratio 0.9 Assessment and Plan 52yo female with s/p uncomplicated lap luis by Slim Gill, Consult hospitalist because of chest tight Chest tight likely from Pneumomediastinum which is evident in the chest CT studies Chest surgeon on the case, IV antibiotic and watching Enzyme troponin negative 3 sets Pneumomediastinum likely from tracheal tear/rupture Chest CT has rule out PE See above No pulmonary emboli identified. s/p uncomplicated lap luis by Slim Gill, for this conditions and discharge plan will be per primary team Medicine sign off and call us if have any question, or if have further need Continued [facility] stay due to: home environment unsafe for pt Discharge planning: home
[2017-06-13 15:32] VITALS: BP 81/47; PULSE 53; TEMP 37.1; O2SAT 93
[2017-06-13 22:53] VITALS: BP 94/57; PULSE 46; TEMP 37.1; O2SAT 92
[2017-06-14 00:57] VITALS: PULSE 50
[2017-06-14] MEDS: HYDROCODONE/ACETAMOPHEN 5/325MG TAB PO PRN ×3 (02:17→21:50)
[2017-06-14] MEDS: HEPARIN SOD 5000 UNIT/0.5 ML CARP SQ SCH ×3 (06:28→21:53)
[2017-06-14] MEDS: PIPERACILL/TAZOBAC IV 3.375 GM in DEXTROSE 5% 100ML 100 ML IV SCH ×3 (06:28→21:50)
--- NOTE | 2017-06-14 06:35 | Surgery Progress Note ---
Surgery Progress Note Date of Service Jun 14, 2017. Subjective awake, alert- feeling ok breathing well Objective Vital Signs: Date Time Temp Pulse Resp B/P (MAP) Pulse Ox O2 Delivery O2 Flow Rate FiO2 06/14/17 00:57 50 06/13/17 23:25 Room Air 06/13/17 22:53 37.1 46 18 94/57 (69) 92 Room Air 06/13/17 15:45 Room Air 06/13/17 15:32 37.1 53 18 81/47 (58) 93 Room Air 06/13/17 07:25 36.8 45 18 96/56 (69) 93 Room Air 06/13/17 07:15 Room Air General Appearance: no apparent distress Respiratory/Chest: no respiratory distress Abdomen: soft Laboratory Results: Results Past 24 Hours Test 06/13/17 08:09 06/14/17 04:44 Range/Units Assessment & Plan 06/14/17- tracheal laceration- seems to be stable on current diet IV atbx. pain controlled w/ po meds. 06/13/17- s/p lap luis- still with mild chest pressure- breathing comfortable. will check CT chest- r/o PE possible d/c later today if ok with med team 06/13/17- s/p lap luis- still with mild chest pressure- breathing comfortable. will check CT chest- r/o PE possible d/c later today if ok with med team
--- NOTE | 2017-06-14 07:45 | DIAGNOSTIC IMAGING REPORT ---
CHEST ONE VIEW PORTABLE CLINICAL HISTORY: Pneumomediastinum COMPARISON STUDY: CT scan dated 06/13/2017 FINDINGS: The cardiac and mediastinal contours are normal. There is no evidence of focal pulmonary consolidation. There is no evidence of failure. No pleural effusions are visualized.[ There is equivocal trace pneumomediastinum projected to the left of the trachea at the thoracic inlet. Linear by basilar opacities are felt to represent subsegmental atelectasis. IMPRESSION: 1. Bilateral subsegmental atelectatic change 2. Equivocal trace pneumomediastinum projected to the left of the trachea at the thoracic inlet Electronically signed by: Bruno Bautista M.D. 06/14/2017 7:43 AM Dictated Date/Time: 06/14/2017 7:39 AM
[2017-06-14 07:48] LABS: BASO % 0.6 %; BASO ABS # 0.04 K/uL (0-0.2); EOS % 2.6 %; EOS ABS # 0.16 K/uL (0-0.5); HEMATOCRIT 35.3 % (37-47); HEMOGLOBIN 11.8 g/dL (12.0-16.0); IG# 0.03 K/uL (0.00-0.02); LYMPH % 44.5 %; LYMPH ABS # 2.75 K/uL (1.2-3.4); MEAN CELL VOLUME 87.8 fL (80-100); MEAN CORPUSCULAR HEMOGLOBIN 29.4 pg (25-34); MEAN CORPUSCULAR HGB CONC 33.4 g/dl (32-36); MEAN PLATELET VOLUME 9.5 fL (7.4-10.4); MONO % 6.5 %; NEUT % 45.3 %; PLATELET COUNT 213 K/uL (130-400); RED CELL DISTRIBUTION WIDTH CV 12.7 % (11.5-14.5); RED CELL DISTRIBUTION WIDTH SD 41.3 fL (36.4-46.3); WHITE BLOOD COUNT 6.18 K/uL (4.8-10.8)
[2017-06-14 08:10] VITALS: BP 90/58; PULSE 50; TEMP 36.9; O2SAT 94
[2017-06-14 08:36] VITALS: O2SAT 94
--- NOTE | 2017-06-14 11:20 | SURGERY PROGRESS NOTE ---
DATE: 06/14/2017 Ms. Derian vásquez was seen today 48 hours after a tear in her membranous trachea iatrogenically during a gallbladder resection. She is stable today. Her white count is normal. She has no fever. Her pain is no worse. All in all, I think she looks quite good. At this point, I would like to check a CT scan without contrast in the morning and if this is stable, I think we would probably be able to discharge her on p.o. antibiotics.
[2017-06-14] MEDS ORDERED: FLUC150T PO (14:15)
[2017-06-14 15:29] VITALS: BP 93/59; PULSE 55; TEMP 37; O2SAT 94
--- NOTE | 2017-06-14 17:04 | Anesthesiology Progress Note ---
Anesthesia Progress Note Date of Service Jun 14, 2017. Progress Notes The patient is a 52 y/o female with a history of childhood asthma, GERD, hiatal hernia and skin cancer who is POD 2 s/p laparoscopic cholecystectomy with Dr Gill. The patient was found to have a tracheal laceration postoperatively after being transferred to the floor. She is being treated with IV antibiotics. The patient was resting in bed when I went to see her. She stated that she felt ok other than for the discomfort in her chest for which she is receiving [place]. She was ambulating in the halls today and is saturating 94% on RA. She continues to be afebrile and does not have an elevated white blood cell count. CXR from today showed some atelectasis and equivocal trace pneumomediastinum. . Per Dr. Cruz's recommendations a chest CT will be repeated tomorrow and if it looks stable the patient will likely be discharged home on oral antibiotics.
[2017-06-14 22:55] VITALS: BP 113/71; PULSE 56; TEMP 37.2; O2SAT 93
[2017-06-15] MEDS: PIPERACILL/TAZOBAC IV 3.375 GM in DEXTROSE 5% 100ML 100 ML IV SCH (06:04)
[2017-06-15] MEDS: HEPARIN SOD 5000 UNIT/0.5 ML CARP SQ SCH (06:05)
[2017-06-15] MEDS ORDERED: ONDA4TAB46 PO (06:17)
--- NOTE | 2017-06-15 06:20 | Surgery Progress Note ---
Surgery Progress Note Date of Service Jun 15, 2017. Subjective awake, alert, feels ok- no acute chgs Objective Vital Signs: Date Time Temp Pulse Resp B/P (MAP) Pulse Ox O2 Delivery O2 Flow Rate FiO2 06/15/17 00:00 Room Air 06/14/17 22:55 37.2 56 18 113/71 (85) 93 Room Air 06/14/17 15:29 37.0 55 18 93/59 (70) 94 Room Air 06/14/17 15:15 Room Air 06/14/17 08:36 94 Room Air 06/14/17 08:10 36.9 50 18 90/58 (69) 94 Room Air 06/14/17 08:00 Room Air General Appearance: no apparent distress Respiratory/Chest: no respiratory distress Abdomen: soft Incision(s): dry, intact Laboratory Results: Results Past 24 Hours Test 06/14/17 07:10 06/15/17 04:44 06/15/17 05:31 Range/Units White Blood Count 6.18 4.8-10.8 K/uL Red Blood Count 4.02 4.2-5.4 M/uL Hemoglobin 11.8 12.0-16.0 g/dL Hematocrit 35.3 37-47 % Mean Corpuscular Volume 87.8 80-100 fL Mean Corpuscular Hemoglobin 29.4 25-34 pg Mean Corpuscular Hemoglobin Concent 33.4 32-36 g/dl Platelet Count 213 130-400 K/uL Mean Platelet Volume 9.5 7.4-10.4 fL Neutrophils (%) (Auto) 45.3 % Lymphocytes (%) (Auto) 44.5 % Monocytes (%) (Auto) 6.5 % Eosinophils (%) (Auto) 2.6 % Basophils (%) (Auto) 0.6 % Neutrophils # (Auto) 2.80 1.4-6.5 K/uL Lymphocytes # (Auto) 2.75 1.2-3.4 K/uL Monocytes # (Auto) 0.40 0.11-0.59 K/uL Eosinophils # (Auto) 0.16 0-0.5 K/uL Basophils # (Auto) 0.04 0-0.2 K/uL RDW Standard Deviation 41.3 36.4-46.3 fL RDW Coefficient of Variation 12.7 11.5-14.5 % Immature Granulocyte % (Auto) 0.5 % Immature Granulocyte # (Auto) 0.03 0.00-0.02 K/uL Assessment & Plan 06/15/17- stable- seems to be normal- for CT per thoracic team Cont IV atbx - will d/c when felt stable per Dr Cruz. scripts for [place], Diflucan and Zofran in chart. 06/14/17- tracheal laceration- seems to be stable on current diet IV atbx. pain controlled w/ po meds. 06/13/17- s/p lap luis- still with mild chest pressure- breathing comfortable. will check CT chest- r/o PE possible d/c later today if ok with med team 06/14/17- tracheal laceration- seems to be stable on current diet IV atbx. pain controlled w/ po meds. 06/13/17- s/p lap luis- still with mild chest pressure- breathing comfortable. will check CT chest- r/o PE possible d/c later today if ok with med team
[2017-06-15 07:07] VITALS: BP 100/63; PULSE 49; TEMP 36.6; O2SAT 94
[2017-06-15] MEDS: HYDROCODONE/ACETAMOPHEN 5/325MG TAB PO PRN (07:58)
[2017-06-15 08:00] LABS: BASO % 0.7 %; BASO ABS # 0.04 K/uL (0-0.2); EOS % 4.4 %; EOS ABS # 0.25 K/uL (0-0.5); HEMATOCRIT 37.9 % (37-47); HEMOGLOBIN 12.9 g/dL (12.0-16.0); IG# 0.03 K/uL (0.00-0.02); LYMPH % 37.3 %; LYMPH ABS # 2.12 K/uL (1.2-3.4); MEAN CELL VOLUME 86.7 fL (80-100); MEAN CORPUSCULAR HEMOGLOBIN 29.5 pg (25-34); MEAN PLATELET VOLUME 9.5 fL (7.4-10.4); MONO % 6.5 %; MONO ABS # 0.37 K/uL (0.11-0.59); NEUT % 50.6 %; NEUT ABS # 2.87 K/uL (1.4-6.5); PLATELET COUNT 206 K/uL (130-400); RED CELL DISTRIBUTION WIDTH CV 12.6 % (11.5-14.5); RED CELL DISTRIBUTION WIDTH SD 40.1 fL (36.4-46.3); WHITE BLOOD COUNT 5.68 K/uL (4.8-10.8)
[2017-06-15 08:33] LABS: ALBUMIN 3.1 gm/dl (3.4-5.0); CALCIUM 9.1 mg/dl (8.5-10.1); CREATININE 0.86 mg/dl (0.60-1.20); POTASSIUM 3.6 mmol/L (3.5-5.1)
[2017-06-15 08:36] LABS: TOTAL PROTEIN 6.6 gm/dl (6.4-8.2)
--- NOTE | 2017-06-15 08:37 | DIAGNOSTIC IMAGING REPORT ---
(CHEST) THORAX WITHOUT CT DOSE: 434.23 mGycm HISTORY: Trauma f/u trachea tear TECHNIQUE: Multiaxial CT images of the chest were performed without contrast. A dose lowering technique was utilized adhering to the principles of ALARA. COMPARISON: None. FINDINGS: The tracheal tear persists. It is unchanged in size and configuration. The pneumomediastinum has moderately improved. No evidence for abscess or collection. Minimal dependent bibasilar atelectasis with lungs otherwise appearing clear. No abnormal pericardial collection or air. IMPRESSION: 1. Unchanged tracheal laceration/tear. 2. Improving mediastinal air estimated 50% improvement per volume 3. The lungs remain clear. 4. Minimal bibasilar dependent atelectatic change. The above report was generated using voice recognition software. It may contain grammatical, syntax or spelling errors. Electronically signed by: Jann Wood M.D. 06/15/2017 8:35 AM Dictated Date/Time: 06/15/2017 8:29 AM
[2017-06-15] MEDS ORDERED: AMOX875T PO (09:17)
--- NOTE | 2017-06-15 09:43 | SURGERY PROGRESS NOTE ---
DATE: 06/15/2017 Ms. Menard was seen today 3 days after an iatrogenic tear of her membranous trachea. She looks fine. Her white count is normal. She has no fevers. Her oxygenation is good. Her heart rate is not elevated. She has been ambulating in the hallway and tolerating a diet. I discussed this case with Dr. Slim Gill from general surgery. I believe this patient can be discharged on Augmentin. We had a long talk about this and I have given her my cell number to call me should any issues arise. However, at this point, I believe that after the CT scan today showed a marked decrease in the mediastinal air, that she is going to simply heal this over. 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 I told her to call me should she develop a problem with the tachycardia in particular, shortness of breath, hypoxia or increasing pain or subcutaneous emphysema. She understands. I will see her back in the office with a repeat CT scan in the next 10-14 days.
[2017-06-15 10:04] VITALS: BP 100/63; PULSE 49; TEMP 36.6; O2SAT 94
--- NOTE | 2017-06-15 11:09 | Progress Note ---
Progress Note Date of Service Jun 15, 2017. Progress Note ANESTHESIA: Follow up with patient. CT chest this am shows less air in chest. Pt states up ambulating without SOB. Physician plan on discharge today. Vss. Encouraged to notify attending immediately if condition changes. Verbalized understanding. Dr. Makla Bailey updated on patient status.
--- NOTE | 2017-06-16 15:45 | DISCHARGE SUMMARY ---
PRIMARY DISCHARGE DIAGNOSES: 1. Biliary colic and chronic cholecystitis. 2. Pneumomediastinum. SECONDARY DISCHARGE DIAGNOSES: 1. Gastroesophageal reflux disease. 2. Hiatal hernia. PROCEDURE PERFORMED: Laparoscopic cholecystectomy with intraoperative cholangiogram. CONSULTATIONS: 1. [facility] hospitalist to assist in medical management. 2. Thoracic Surgery, Dr. Cruz for pneumomediastinum. HOSPITAL COURSE: The patient is a 52-year-old female, taken to the operating room for elective laparoscopic cholecystectomy for biliary colic and chronic cholecystitis. The procedure was well tolerated. She was transferred to the surgical floor routinely for overnight observation. On postoperative day 1, she was complaining of some chest pressure. Her vitals were stable. CT was performed to rule out PE or other acute process. This did identify a tear in the membranous trachea and pneumomediastinum. She was started on IV Zosyn. Thoracic Surgery was consulted. She was observed over the next 48 hours and remained stable. Her white count remained stable. She was afebrile. A repeat CT on postoperative day #3 showed less mediastinal air. She was otherwise doing well. Her incisions were clean and dry. Her abdomen was benign. She was stable for discharge on oral antibiotics. DISCHARGE INSTRUCTIONS: Discharge home. Follow up with Dr. Gill in 1 week. Follow up with Dr. Cruz in 1-2 weeks with possible repeat CT at that time. DISCHARGE MEDICATIONS: Augmentin 875 mg p.o. b.i.d. x14, Diflucan 150 mg daily for 2 days, [place] 5/325 1-2 tablets every 6 hours as needed, Zofran 4 mg p.o. q. 4 hours as needed, and she may continue her home Advil 800 mg as needed.
== END 2017-06-15 11:06 | disposition home or self-care (01) | DRG 417 ==
LOC: C.ACU 06:31 → C.MSN 09:23 → ENRESERV 10:26 → OBSVTOIN 06-13 08:36
PROVIDERS: ADMIT Surgery; ATTEND Surgery
PROC: 0FT44ZZ Resection of Gallbladder, Percutaneous Endoscopic Approach (ICD-10-PCS; principal; 2017-06-12 08:10)
DX: K80.44 Calculus of bile duct with chronic cholecystitis without obstruction (principal); S11.021A Laceration without foreign body of trachea, initial encounter; J98.2 Interstitial emphysema; Y83.6 Removal of other organ (partial) (total) as the cause of abnormal reaction of the patient, or of later complication, without mention of misadventure at the time of the procedure; Y92.234 Operating room of hospital as the place of occurrence of the external cause; Z82.49 Family history of ischemic heart disease and other diseases of the circulatory system; Z80.0 Family history of malignant neoplasm of digestive organs

== ENCOUNTER → 2017-06-22 | Outpatient (CLI) | payer OTHER ==
[~2017-06-22] MED LIST changes: +AMOX875T PO; -CEFUROXIME IV 1,500 MG in DEXTROSE 5% 100ML IV SCH; +FLUC150T PO; +HYDR-5688 PO; +ONDA4TAB46 PO
--- NOTE | 2017-06-22 12:32 | DIAGNOSTIC IMAGING REPORT ---
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 A dose lowering technique was utilized adhering to the principles of ALARA. COMPARISON: 06/15/2017 FINDINGS: The lungs remain clear. Tracheal perforation continues to heal with minimal residual. Extraluminal air has completely resolved. There is no significant adenopathy within the hilar and mediastinal regions. No significant alteration in fat density is present. IMPRESSION: 1. Continued improvement in the chest with no evidence for extraluminal air. 2. Tracheal laceration/tear continues to improve 3. The lungs remain clear. The above report was generated using voice recognition software. It may contain grammatical, syntax or spelling errors. Electronically signed by: Jann Wood M.D. 06/22/2017 12:30 PM Dictated Date/Time: 06/22/2017 12:26 PM
== END | disposition home or self-care (01) ==
LOC: C.CTS 11:58
PROVIDERS: ATTEND Surgery
DX: J39.8 Other specified diseases of upper respiratory tract (principal)

== ENCOUNTER → 2017-07-07 | Outpatient (CLI) | payer OTHER ==
[~2017-07-07] MED LIST changes: -AMOX875T PO; -FLUC150T PO
--- NOTE | 2017-07-10 15:18 | MAMMOGRAPHY REPORT ---
THIS REPORT HAS BEEN AMENDED. BILATERAL DIGITAL SCREENING MAMMOGRAM TOMOSYNTHESIS WITH CAD: 07/07/2017 CLINICAL HISTORY: Routine screening. Patient has no complaints. TECHNIQUE: Breast tomosynthesis in addition to standard 2D mammography was performed. Current study was also evaluated with a Computer Aided Detection (CAD) system. COMPARISON: No prior exams were available for comparison. BREAST COMPOSITION: There are scattered areas of fibroglandular density in both breasts. FINDINGS: There are no suspicious masses, calcifications, or areas of architectural distortion noted in either breast. However, recommend comparison with outside prior mammograms to evaluate for any po ssible subtle changes. IMPRESSION: ACR BI-RADS CATEGORY 0: INCOMPLETE EVALUATION: NEED ADDITIONAL IMAGING EVALUATION No mammographic evidence of malignancy in either breast. However, recommend comparison with prior ou tside mammograms to evaluate for any possible subtle changes. The prior outside mammograms will be r equested, and an addendum will be made when they are received and a comparison is made. Approximately 10% of breast cancers are not detected with mammography. A negative mammographic report should not delay biopsy if a clinically suggestive mass is present. Dolores Cooper M.D. ah/:07/07/2017 16:33:11 Vp Medical: Pricilla Ward RT(R)(M), [facility] letter sent: Need Priors 0 BI-RADS Code: ACR BI-RADS Category 0: Incomplete Evaluation: Need Additional Imaging Evaluation AMENDMENT: 07/12/2017 Dolores Cooper M.D. Prior outside mammograms dated 10/22/2015, 11/20/2013, 10/11/2012, 08/09/2011 from [facility] have become available for comparison. Compared to the prior exams, there has been no signi ficant interval change. There is no mammographic evidence of malignancy in either breast. Recommend routine bilateral screening mammograms in one year. Amended BI-RADS: ACR BI-RADS Category 2: Benign letter sent: Normal 05/30
== END | disposition home or self-care (01) ==
LOC: C.MAMM 08:32
PROVIDERS: ATTEND Family Medicine
DX: Z12.31 Encounter for screening mammogram for malignant neoplasm of breast (principal)

== ENCOUNTER → 2017-08-24 | Outpatient (CLI) | payer OTHER ==
--- NOTE | 2017-08-24 08:14 | DIAGNOSTIC IMAGING REPORT ---
(CHEST) THORAX WITHOUT CLINICAL HISTORY: J39.8 Tracheal perforation COMPARISON STUDY: 06/22/2017 CT DOSE: 399.95 mGycm TECHNIQUE: CT of the thorax was performed from the thoracic inlet to the lung bases. Images are reviewed in the axial, sagittal, and coronal planes. IV contrast was not administered for this examination. A dose lowering technique was utilized adhering to the principles of ALARA. FINDINGS: Thyroid: Imaged portions of the thyroid gland are normal in appearance. Thoracic aorta: The thoracic aorta is normal in course and caliber, noting standard 3 vessel arch anatomy. Heart: The heart is normal in size and configuration, without pericardial effusion. Lungs and pleural spaces: No pleural effusions are visualized. There is no focal pulmonary consolidation. Mediastinum: There is no evidence of pneumomediastinum. There is a right paratracheal lymph node which remains the upper limits of normal size and size demonstrating a normally fatty hilum. The previously identified tracheal perforation is no longer visualized. Angelica: There is no evidence of pathologic hilar adenopathy given the limitations of a noncontrast study Axilla: There is no evidence of pathologic axillary lymphadenopathy Upper abdomen: The gallbladder surgically absent Skeletal structures: There are no lytic or blastic osseous lesions. IMPRESSION: 1. No acute intrathoracic findings 2. The previously identified tracheal perforation is no longer visualized 3. No evidence of pneumomediastinum Electronically signed by: Bruno Bautista M.D. 08/24/2017 8:12 AM Dictated Date/Time: 08/24/2017 8:07 AM
--- NOTE | 2017-08-24 08:43 | DIAGNOSTIC IMAGING REPORT ---
DOUBLE CONTRAST BARIUM ESOPHAGRAM CLINICAL HISTORY: History of previous tracheal perforation. Dysphagia. COMPARISON STUDY: Chest CT dated 08/24/2017. TECHNIQUE: A standard air contrast barium esophagram is performed. Multiple spot images of the esophagus are acquired both upright and prone. FINDINGS: The patient swallowed barium and the barium pill without difficulty. The mucosal pattern is normal. There is no evidence of intrinsic or extrinsic mass lesion. No aspiration was seen. The gastroesophageal junction distended normally. No gastroesophageal reflux could be elicited by having the patient perform the Valsalva maneuver. Fluoroscopy time: 1.2 minutes. Fluoroscopic images: 21 IMPRESSION: Normal barium esophagram. Electronically signed by: Geremias Oro M.D. 08/24/2017 8:41 AM Dictated Date/Time: 08/24/2017 8:40 AM
== END | disposition home or self-care (01) ==
LOC: C.CTS 07:49
PROVIDERS: ATTEND Surgery
DX: J39.8 Other specified diseases of upper respiratory tract (principal)